=== PATIENT | female | born 1985 | race Hispanic/Latino ===

== ENCOUNTER 2017-02-23 05:27 | Emergency (ER) | payer OTHER ==
[~2017-02-23] VITALS: Ht 147.3 cm; Wt 115.0 kg
[2017-02-23] MEDS ORDERED: MACR100C43 PO (06:32)
[2017-02-23 06:39] LABS: CONTROL LINE UCG INT CTR LINE PRESENT
[2017-02-23] MEDS ORDERED: PYRI1TAB5 PO (06:42)
[2017-02-23 06:51] VITALS: BP 104/61
== END 2017-02-23 06:52 | disposition home or self-care (01) ==
LOC: M ED 05:27
DX: N39.0 Urinary tract infection, site not specified (principal); Z88.5 Allergy status to narcotic agent